=== PATIENT | male | born 1985 | race Caucasian/White ===

== ENCOUNTER 2016-08-18 17:00 | Emergency (ER) | payer SELFPAY ==
[2016-08-18 17:46] VITALS: BP 138/66
--- NOTE | 2016-08-18 18:10 | UC ---
Eye Complaint HPI - HPI Summary HPI Summary: The patient comes in today for: 1. Swelling and redness and tenderness of the lower right eye lid: Onset: 4 days. Palliative/provocative: Tenderness to touching or hard blink. Quality: Sharp, and ache. Region: Lower right eye lid. Severity:3/10 Time: Constant. Associated symptoms: Drainage: None. Previous disease: None. Vision: "Fine." No Foreign body sensation. * - History of Current Complaint Chief Complaint: UCEye Stated Complaint: RIGHT EYE Time Seen by Provider: 08/18/16 18:06 Hx Obtained From: Patient - Allergies/Home Medications Allergies/Adverse Reactions: Allergies Allergy/AdvReac Type Severity Reaction Status Date / Time No Known Allergies Allergy Verified 08/18/16 17:46 PMH/Surg Hx/FS Hx/Imm Hx Previously Healthy: Yes Endocrine History Of: Denies: Diabetes, Thyroid Disease, Hyperthyroidism, Hypothyroidism, Dyslipidemia Cardiovascular History Of: Denies: Cardiac Disorders, Hypertension, Pacemaker/ICD, Myocardial Infarction , Congestive Heart Failure, Atrial Fibrillation, Deep Vein Thrombosis, Bleeding Disorders Respiratory History Of: Denies: COPD, Asthma, Bronchitis, Pneumonia, Pulmonary Embolism GI/ History Of: Denies: Gastroesophageal Reflux, Ulcer, Gastrointestinal Bleed, Gall Bladder Disease, Kidney Stones, Diverticulitis, Renal Disease, Urosepsis Neurological History Of: Denies: TIA, CVA, Dementia, Seizures, Migraine Psychological History Of: Denies: Anxiety, Depression, Bipolar Disorder, Schizophrenia, Post Traumatic Stress Disorder Cancer History Of: Denies: Lung Cancer, Colorectal Cancer, Breast Cancer, Prostate Cancer, Cervical Cancer Other History Of: Negative For: HIV, Hepatitis C, Anticoagulant Therapy - Surgical History Surgical History: None - Family History Known Family History: Negative: Cardiac Disease, Hypertension - Social History Occupation: Employed Full-time Alcohol Use: Weekly Substance Use Type: None Smoking Status (MU): Never Smoked Tobacco Review of Systems Constitutional: Negative Skin: Rash - Below the right eye (lid) Eyes: Negative ENT: Negative Respiratory: Negative Cardiovascular: Negative Gastrointestinal: Negative Genitourinary: Negative Motor: Negative All Other Systems Reviewed And Are Negative: Yes Physical Exam Triage Information Reviewed: Yes Appearance: Well-Appearing, No Pain Distress, Well-Nourished Vital Signs: Initial Vital Signs Temp 98.7 F 08/18/16 17:40 Pulse 51 08/18/16 17:40 Resp 12 03/20/17 17:40 BP 138/66 08/18/16 17:40 Pulse Ox 100 08/18/16 17:40 Vital Signs Reviewed: Yes Eyes: Positive: Conjunctiva Clear, Other: - There is a 5-7 mm erythematous mass in the middle of lower right eye lid. There is a tenderness and no harding or drainage. PERR, EOMI.. Negative: Discharge ENT: Positive: Hearing grossly normal. Negative: Pharyngeal erythema, Nasal congestion, Nasal drainage, TM bulging, TM dull, TM red, Tonsillar swelling, Tonsillar exudate Dental: Negative: Gross Decay/Caries @, Dental Fracture @ Neck: Positive: Supple, Nontender, No Lymphadenopathy Respiratory: Positive: Lungs clear, No respiratory distress, No accessory muscle use. Negative: Crackles, Rhonchi Cardiovascular: Positive: RRR, No Murmur Abdomen Description: Positive: Nontender, No Organomegaly, Soft. Negative: Distended, Guarding Musculoskeletal: Positive: Strength Intact, ROM Intact Neurological: Positive: Alert, Muscle Tone Normal Psychological: Positive: Normal Response To Family, Age Appropriate Behavior, Consolable Skin: Positive: rashes - Redness of the lower eye lid, right.. Negative: breakdown Eye Complaint Course/Dx - Course Course Of Treatment: Patient was told of my diagnosis (hordeolum/sty) and how to treat with hot compresses and antibiotic drops if the sclera starts to get red. - Differential Dx/Diagnosis Provider Diagnoses: Sty, right lower eye lid. Discharge - Discharge Plan Condition: Stable Disposition: HOME Patient Education Materials: Radha (ED) Forms: *Work Release Referrals: No Primary Care Phys,NOPCP [Primary Care Provider] - 1 Week Additional Instructions: Please see your primary care provider in about a week. If you don't have a primary care provider, please reference the included sheet of local provider. If you get worse, please be seen sooner. Please have your blood pressure repeated in several days and if above 120/80 please see your primary care provider in 1 week.
== END 2016-08-18 18:36 | disposition home or self-care (01) ==
LOC: UCCORT 17:00
DX: H00.012 Hordeolum externum right lower eyelid (principal)
CPT/HCPCS: 99202; G0463

== ENCOUNTER 2017-10-24 09:03 | Emergency (ER) | payer BC ==
[2017-10-24 09:37] VITALS: BP 130/71
--- NOTE | 2017-10-24 09:37 | UC ---
Skin Complaint HPI - HPI Summary HPI Summary: 32 yo WM c/o insect bite on left forearm with mild yellowish d/c that concerned him. Denies rash f/c - History of Current Complaint Time Seen by Provider: 10/24/17 09:28 Stated Complaint: INSECT BITE - FOREARM (L) Hx Obtained From: Patient Onset/Duration: Sudden Onset Skin Exposure Onset/Duration: Hours Ago Onset Severity: Mild Current Severity: Mild Location: Discrete, Other - left forearm Character: Swelling, Redness Aggravating Factor(s): Nothing Alleviating Factor(s): Nothing - Allergy/Home Medications Allergies/Adverse Reactions: Allergies Allergy/AdvReac Type Severity Reaction Status Date / Time No Known Allergies Allergy Verified 10/24/17 09:33 Home Medications: Home Medications NK [No Home Medications Reported] 10/24/17 [History Confirmed 10/24/17] Review of Systems Constitutional: Negative Skin: Other - insect bites ENT: Negative Respiratory: Negative Cardiovascular: Negative Gastrointestinal: Negative Neurovascular: Negative Musculoskeletal: Negative Neurological: Negative Psychological: Negative All Other Systems Reviewed And Are Negative: Yes PMH/Surg Hx/FS Hx/Imm Hx Previously Healthy: Yes Other History Of: Negative For: HIV, Hepatitis C, Anticoagulant Therapy - Surgical History Surgical History: None - Family History Known Family History: Negative: Cardiac Disease, Hypertension - Social History Alcohol Use: Weekly Substance Use Type: None Smoking Status (MU): Never Smoked Tobacco Physical Exam Triage Information Reviewed: Yes Appearance: Well-Appearing Vital Signs Reviewed: Yes ENT: Positive: Normal ENT inspection Neck exam: Normal Neck: Positive: No Lymphadenopathy Respiratory Exam: Normal Cardiovascular Exam: Normal Psychological Exam: Normal Skin: Positive: significant lesion(s) - 2 insect bites, size 1x1cm each, on flexor surface of left forearm- mildly red, pruritic with DRIED clear serous d/ c no lymphatic streaking Course/Dx - Diagnoses Provider Diagnoses: insect bite Discharge - Sign-Out/Discharge Documenting (check all that apply): Discharge/Admit/Transfer - Discharge Plan Condition: Stable Disposition: HOME Referrals: No Primary Care Phys,NOPCP [Primary Care Provider] - - Billing Disposition and Condition Condition: STABLE Disposition: HOME
== END 2017-10-24 09:43 | disposition home or self-care (01) ==
LOC: UCCORT 09:03
DX: S50.862A Insect bite (nonvenomous) of left forearm, initial encounter (principal); W57.XXXA Bitten or stung by nonvenomous insect and other nonvenomous arthropods, initial encounter; Y93.9 Activity, unspecified; Y92.9 Unspecified place or not applicable
CPT/HCPCS: 99211; G0463